=== PATIENT | female | born 1955 | race Caucasian/White ===

== ENCOUNTER 2019-12-01 07:00 | Inpatient (IN) ==
[2019-11-25 12:50] LABS: Basophils # (Auto) 0.05 K/mcL (0.00-0.30); Basophils % (Auto) 0.9 % (0.0-2.0); Eosinophils # (Auto) 0.16 K/mcL (0.00-0.70); Granulocytes % (Auto) 44.3 % (38.0-78.0); Hematocrit 43.2 % (34.1-44.9); Hemoglobin 14.1 g/dL (11.2-15.7); Lymphocytes # (Auto) 2.01 K/mcL (1.50-4.80); Lymphocytes % (Auto) 37.6 % (15.5-49.0); Mean Cell Volume 98.2 fL (80.0-100.0); Mean Corpuscular HGB Conc 32.6 g/dL (31.0-36.0); Mean Platelet Volume 10.8 fL (7.4-10.4); Monocytes # (Auto) 0.76 K/mcL (0.10-0.90); Monocytes % (Auto) 14.2 % (1.0-12.0); Platelet Count 288 K/mcL (140-440); Red Cell Distribution Width 11.9 % (11.5-14.5); WBC 5.3 K/mcL (4.50-11.00)
[2019-11-25 13:14] LABS: ALT/SGPT 32 U/l (0-40); AST/SGOT 44 U/l (0-37); Albumin 4.3 gm/dL (3.2-5.2); Albumin/Globulin Ratio 1.5 (1.0-2.3); Alkaline Phosphatase 61 U/L (39-117); Bilirubin,Total 0.3 mg/dL (0.0-1.0); Blood Urea Nitrogen 11 mg/dl (8-23); Calcium 9.3 mg/dl (8.6-10.4); Carbon Dioxide 27 mmol/L (22-30); Globulin 2.9 gm/dL (2.2-3.7); Glomerular Filtration Rate 93; Glucose 86 mg/dL (70-105)
[2019-11-25 13:20] LABS: Chloride 95 mmol/L (96-108)
[2019-11-25 13:28] LABS: Appearance,Urine CLEAR; Bilirubin,Urine NEG (NEG); Color,Urine STRAW; Culture Indicated,Urine NO; Glucose,Urine (UA) NEGATIVE (NEG); Ketones,Urine NEG (NEG); Leukocyte Esterase,Urine NEG /uL (NEG); Nitrate,Urine NEG (NEG); Protein,Urine NEG (NEG); Urine Blood NEG mg/dL (<0.03); Urobilinogen,Urine NEG (NEG)
[2019-11-25 14:03] LABS: Estimated Average Glucose(eAG) 108 mg/dL; Hemoglobin A1C 5.4 % HGB (4.0-6.0)
[~2019-12-01 07:00] MED LIST: CELECOXIB 200 MG CAPSULE PO SCH; IPRATROPIUM/ALBUTEROL 3 ML AMPUL.NEB NEB PRN; PREGABALIN 75 MG CAPSULE PO SCH; SCOPOLAMINE 1 PATCH PATCH TOPICAL PRN; ceFAZolin 2 GM in DEXTROSE 5% IN WATER 50 ML IV SCH; oxyCODONE 10 MG TAB.ER.12H PO SCH
[2019-12-01] MEDS ORDERED: DEXAMETHASONE 10 MG/ML VIAL IV ONE (09:23)
[2019-12-01] MEDS ORDERED: ONDANSETRON 4 MG/2 ML VIAL IV ONE (09:23)
[2019-12-01] MEDS ORDERED: ePHEDrine 50 MG/ML AMPUL IV ONE (09:23)
[2019-12-01] MEDS ORDERED: TRANEXAMIC ACID 1,000 MG/10 ML VIAL IV ONE (09:23)
[2019-12-01] MEDS ORDERED: KETAMINE 100 MG/ML ML IV ONE (09:23)
[2019-12-01] MEDS ORDERED: PROPOFOL 200 MG/20 ML VIAL IV ONE (09:23)
[2019-12-01] MEDS ORDERED: PHENYLEPHRINE 10 MG/ML VIAL IV ONE (09:23)
[2019-12-01] MEDS ORDERED: MEPERIDINE 25 MG/ML SYRINGE IV PRN (10:33)
[2019-12-01] MEDS ORDERED: LACTATED RINGERS 250 ML IV PRN (10:33)
[2019-12-01] MEDS ORDERED: NALOXONE HCL 0.4 MG/ML VIAL IV PRN (10:33)
[2019-12-01] MEDS ORDERED: ONDANSETRON 4 MG/2 ML VIAL IV PRN (10:33)
[2019-12-01] MEDS ORDERED: PROMETHAZINE 25 MG/ML VIAL IV PRN (10:33)
[2019-12-01] MEDS ORDERED: IPRATROPIUM/ALBUTEROL 3 ML AMPUL.NEB NEB PRN (10:33)
[2019-12-01] MEDS ORDERED: diphenhydrAMINE 50 MG/ML VIAL IV PRN (10:33)
[2019-12-01] MEDS ORDERED: ACETAMINOPHEN 700 MG/70 ML BOTTLE IV ONE (10:33)
[2019-12-01] MEDS ORDERED: LACTATED RINGERS 1,000 ML IV SCH (10:45)
[2019-12-01] MEDS ORDERED: BISACODYL 10 MG SUPP.RECT PR PRN (10:49)
[2019-12-01] MEDS ORDERED: HYDROmorphone 1 MG/ML SYRINGE IV PRN (10:49)
[2019-12-01] MEDS ORDERED: BENZOCAINE/MENTHOL 1 LOZENGE PO PRN (10:49)
[2019-12-01] MEDS ORDERED: MAGNESIUM HYDROXIDE 30 ML ORAL.SUSP PO PRN (10:49)
[2019-12-01] MEDS ORDERED: POLYETHYLENE GLYCOL 3350 17 GM PACKET PO PRN (10:49)
[2019-12-01] MEDS ORDERED: FLEETS ADULT ENEMA PR PRN (10:49)
[2019-12-01] MEDS ORDERED: TRANEXAMIC ACID 1,000 MG/10 ML VIAL IV SCH (10:49)
--- NOTE | 2019-12-01 10:49 | Brief Operative Note ---
Brief Operative Note Date of procedure: 12/01/19 Pre-op diagnosis: Right hip dysplasia with DJD Post-op diagnosis: same Procedure: Right anterior total hip arthroplasty Grafts/Implants: Yes (Depuy Actis 7 std stem, +1.5 36mm delta head, 52 cup, neutral altrx liner) Anesthesia: spinal and GLMA Findings: dysplasia Complications: none Surgeon: Luciano Gotti Gas Scrubber Operator: Femi Benson Estimated blood loss (cc): 250 Specimens Removed/Pathology: none sent Condition: stable Disposition: PACU
[2019-12-01] MEDS ORDERED: METOCLOPRAMIDE 10 MG TABLET PO PRN (10:52)
--- NOTE | 2019-12-01 11:04 | Operative Note ---
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 PROCEDURE PERFORMED: Right anterior total hip arthroplasty placing a DePuy Actis size 7 standard offset femoral stem; a +1.5, 36 mm delta ceramic head ball; a 52 Severy cup with a neutral Altrx liner. SURGEON: Luciano Gotti M.D. MICROBIOLOGY MANAGER: Mario Benson PA-C. The PA's assistance was required for the safe and efficient completion of the entire case. This provider's expertise and technical skill were required throughout the case. The PA assisted with preoperative coordination, intraoperative retraction, wound closure, dressing and splint application, as well as postoperative documentation and care coordination. ANESTHESIA: Spinal plus general. DRAINS: None. SPECIMENS: Femoral head which was discarded. BLOOD LOSS: 250 mL. COMPLICATIONS: None. POSTOPERATIVE CONDITION: Stable. INDICATIONS FOR SURGERY: This is a 64-year-old female who has had progressive worsening right hip pain and groin pain. She had a physical exam which showed painful range of motion of the hip and x-rays showed acetabular dysplasia. FINDINGS AT SURGERY: As above. Post implantation showed satisfactory component position, leg length equality and offset. PROCEDURE IN DETAIL: The patient had been seen preoperatively. Informed consent obtained after discussion of risks and benefits of surgery. Risks including, but not limited to, bleeding; infection; injury to nerves, blood vessels, and other surrounding structures; anesthetic risks; incomplete or no resolution of symptoms; leg length discrepancy; dislocation; fracture; DVT and pulmonary embolus risks; and the possibility of needing further revision joint surgery. The patient understood these risks and wished to proceed. Correct operative site was marked and then spinal anesthesia given. The patient was then taken to the operating room and LMA general given. The patient was carefully transferred to the fracture table and then the operative hip was carefully prepped and draped in normal sterile fashion. Timeout was performed verifying patient name, operative site, and plan. Ioban was used to cover all skin surfaces. A standard anterior approach incision was made with a scalpel through skin and subcutaneous tissue. Hemostasis was obtained with Bovie cautery. Careful blunt dissection was taken down on the tensor fascia and then this was undermined circumferentially. IrriSept was irrigated and a ring retractor placed. Tensor fascia was incised in line with muscle fibers and then careful blunt dissection taken medial to the muscle belly. Blunt cobra retractors were placed on the superior and inferior femoral neck and then circumflex vessels were coagulated and cut and vastus fascia split distally. Anterior capsulectomy was performed and then the capsule releases. Corkscrew was placed in the femoral head. Prior to placement of the corkscrew we did take x-rays for joint point. Once a corkscrew was placed we used fluoroscopy to identify our approximate neck cut trajectory and then our femoral neck was cut with oscillating tip saw. Femoral head was removed and the acetabulum exposed. Labrum was excised circumferentially as well as soft tissue from the floor. We then irrigated with IrriSept. We then began sequentially reaming until 1 mm smaller than the final implant. We then opened the acetabular component. IrriSept was irrigated, after a minute pulse lavaged with saline and then the cup was impacted using the [id number]. Joint point was used to verify satisfactory cup position. A center hole cover was placed and then the acetabular liner was carefully aligned and impacted and carefully verified to be fully seated. We then released traction. The leg was externally rotated and released capsule around the medial neck. The leg was then extended and adducted. Capsule was released out towards greater trochanter and then the proximal femur was exposed. Box osteotome was used to gain canal entry and an awl was used to identify canal trajectory. Rongeur and rasp were used to lateralize and then we began sequentially broaching up to the final size. We calcar planed down onto the broach and then the neck trial and head ball were placed. The hip was reduced. Fluoro was brought in and x-rays taken, joint point was used to verify satisfactory position. We then re-dislocated and removed the trial implants. Definitive implants were opened. We then irrigated the femoral canal with IrriSept again, after a minute pulse lavaged with saline. The final stem was impacted and seated. We then opened the head ball. The stem was carefully cleaned and dried and the head ball was impacted. We then reduced the hip with satisfactory tension. Final fluoro images were taken and saved. We irrigated the joint with IrriSept, after a minute pulse lavaged with saline again and then closed the tensor fascia with two running #1 Vicryls, one running proximal, one running distal and a ring retractor was removed. Final IrriSept irrigation was done, after a minute final pulse lavage, and then fat was tacked to fascia with Vicryl and then 2-0 Monocryl for subcutaneous and karyn for skin. Xeroform and sterile dressing were applied. The patient was then awakened, extubated, and transferred to recovery in stable condition. BJB:amna Job ID: [id number] Doc ID: [id number] Luciano Gotti MD
[2019-12-01] MEDS: KETOROLAC 30 MG/ML VIAL IV PRN ×2 (11:16→18:58)
[2019-12-01] MEDS: fentaNYL 100 MCG/2 ML VIAL IV PRN ×2 (11:28→11:36)
--- NOTE | 2019-12-01 11:52 | XRay Report ---
CLINICAL INFORMATION: Post-op Total Hip COMPARISON: Preoperative plain film 02/13/2017 FINDINGS: Right total hip prostheses is anatomically aligned. No osseous abnormality. Both SI and left hip showing minimal degeneration. Soft tissue swelling over the surgical site seen as expected IMPRESSION: Right hip prostheses is anatomically aligned Interpreted and Authenticated by: Jayant Cummings 12/01/19
[2019-12-01] MEDS: 0.9 % SODIUM CHLORIDE 1,000 ML IV SCH ×2 (11:55→20:29)
[2019-12-01] MEDS: ONDANSETRON 4 MG/2 ML VIAL IV PRN ×2 (13:03→17:17)
[2019-12-01] MEDS: 0.9 % SODIUM CHLORIDE 10 ML SYRINGE IV SCH ×2 (13:04→20:19)
--- NOTE | 2019-12-01 15:10 | XRay Report ---
CLINICAL INFORMATION: total hip arthroplasty COMPARISON: None. FINDINGS: Multiple digital images from the OR is submitted. Final image shows right total hip prosthesis in anatomic alignment. Soft tissue swelling as expected IMPRESSION: Right total hip prosthesis in anatomic alignment. Interpreted and Authenticated by: Jayant Cummings 12/01/19
--- NOTE | 2019-12-01 15:13 | Discharge Summary ---
Discharge Provider Provider Patient information: Note initiated : 12/01/19 at 3:13 pm Service Date, if different from initiated Date: [] Patient: Karishma Howe 64 y/o F admitted on 12/01/19 for Right Total Hip Arthroplasty Anterior. Chief Complaint: [] Date of admission: 12/01/19 07:00 Discharge date: 12/02/19 Primary care physician: Jayant Keys DO COURSE Hospital Course Hospital course: Pt discharged to home s/p elective R GOLD Discharge diagnosis: R hip OA Time Spent with Patient Time attestation: Total time spent providing and/or coordinating discharge services: Physical Examination Narrative Exam Narrative: Pt evaluated 12/02/19, doing well, no c/o. Bandages c/d/i, NVI- distal. Exam Weight bearing status: as tolerated Discharge Instructions - GOLD Patient Instructions Total Hip Protocol: Follow activity instructions as provided by Physical Therapy. Discharge Plan Patient/Caregiver Discharge Instructions Activity: increase activity as tolerated and resume usual activities as tolerated Diet: Regular Diet Prescriptions: New hydrocodone-acetaminophen 10-325 mg tablet 1 - 2 tab PO Q4-6HP PRN (Reason: pain) Qty: 60 RF: 0 aspirin 81 mg tablet,delayed release (DR/EC) 81 mg PO BID Qty: 60 RF: 0 Continued thyroid (pork) [Hurst Thyroid] 60 mg tablet 60 mg PO BID RF: 0 multivitamin [Multiple Vitamins] Tablet 1 tab PO QDAY RF: 0 valacyclovir [Valtrex] 1 gram tablet 1,000 mg PO .COMPLEX RF: 0 melatonin 10 mg tablet 20 mg PO HS RF: 0 naproxen sodium [Aleve] 220 mg tablet 220 mg PO Q12H PRN (Reason: Pain) RF: 0 metoclopramide HCl [Reglan] 10 mg tablet 10 mg PO QDAY PRN (Reason: Nausea) RF: 0 estradiol 1 MG tablet 1 mg PO DAILY RF: 0 magnesium oxide 400 mg magnesium Capsule 400 mg PO QDAY RF: 0 Adult Probiotic 3 billion cell Capsule 3,000 mmu cells PO QDAY RF: 0 Other Ambulatory Orders: Physical Therapy at Discharge - GOLD (Routine) Location: None Selected Ordered By: Femi Vasquez (ONCE) Location: None Selected Ordered By: Femi Benson Follow Up Plan Patient Disposition: Home, Self-Care Hospital Course: Pt discharged to home s/p elective GOLD Prognosis: Good Rehab Potential: Good Overall status at discharge: patient is progressing back to baseline Discharge Orders: Discharge Order (Routine); Ordered 12/02/19 Ordered By: Femi Benson Pending Pending Pending: Resuscitation Status Full Code Diet Regular Diet Start FriNov 30 105 Hydromorphone HCl (Dilaudid) 0 mg IV Q2HP PRN; Protocol PRN Reason: Per Pain Protocol Last Admin: 12/01/19 13:03 Dose: 1 mg Documented by: EMILI Sodium Chloride (Sodium Chloride 0.9%) 1,000 mls @ 100 mls/hr IV .Q10H JOAN Last Admin: 12/01/19 11:55 Dose: 100 mls/hr Documented by: EMILI Ketorolac Tromethamine (Toradol) 30 mg IV Q6HP PRN PRN Reason: Pain Stop: 12/03/19 10:50 Last Admin: 12/01/19 11:16 Dose: 30 mg Documented by: VITA Ondansetron HCl (Zofran) 4 mg IV Q4HP PRN PRN Reason: Nausea And Vomiting Last Admin: 12/01/19 13:03 Dose: 4 mg Documented by: EMILI Sodium Chloride (Saline Flush) 10 ml IV Q8 JOAN Last Admin: 12/01/19 13:04 Dose: Not Given Documented by: EMILI
[2019-12-01] MEDS: ceFAZolin 1 GM VIAL IV SCH (17:18)
[2019-12-01] MEDS: oxyCODONE/APAP 5/325MG TABLET PO PRN ×2 (18:55→20:12)
[2019-12-01] MEDS: DOCUSATE SODIUM 100 MG CAPSULE PO SCH (20:18)
[2019-12-01] MEDS: THYROID, PORK 60 MG TABLET PO SCH (20:18)
[2019-12-01] MEDS: ASPIRIN 81 MG TAB.CHEW PO SCH (20:19)
[2019-12-01] MEDS ORDERED: SENNOSIDES 1 TABLET PO SCH (21:00)
[2019-12-01] MEDS ORDERED: valACYclovir 500 MG TABLET PO PRN (21:00)
[2019-12-01] MEDS ORDERED: MELATONIN 3 MG TABLET PO SCH (21:00)
[2019-12-02] MEDS: ceFAZolin 1 GM VIAL IV SCH (01:00)
[2019-12-02] MEDS: oxyCODONE/APAP 5/325MG TABLET PO PRN ×3 (01:00→09:02)
[2019-12-02] MEDS: KETOROLAC 30 MG/ML VIAL IV PRN (01:04)
[2019-12-02] MEDS: 0.9 % SODIUM CHLORIDE 10 ML SYRINGE IV SCH (04:29)
[2019-12-02] MEDS: 0.9 % SODIUM CHLORIDE 1,000 ML IV SCH (07:41)
[2019-12-02] MEDS: ASPIRIN 81 MG TAB.CHEW PO SCH (07:58)
[2019-12-02] MEDS: THYROID, PORK 60 MG TABLET PO SCH (07:58)
[2019-12-02] MEDS: DOCUSATE SODIUM 100 MG CAPSULE PO SCH (07:58)
[2019-12-02] MEDS ORDERED: ESTRADIOL 1 MG TABLET PO SCH (09:00)
[2019-12-02] MEDS ORDERED: LACTOBACILLUS 1 CAPSULE PO SCH (09:00)
[2019-12-02] MEDS ORDERED: MAGNESIUM OXIDE 400 MG TABLET PO SCH (09:00)
[2019-12-02] MEDS ORDERED: MULTIVIT,THER IRON,CA,FA & MIN 1 TABLET PO SCH (09:00)
[2019-12-02] MEDS ORDERED: PNEUMOCOCCAL 23-VAL P-SAC VAC 0.5 ML SYRINGE IM ONE (10:00)
== END 2019-12-02 09:20 | disposition home or self-care (01) | DRG 470 ==
LOC: MEDSUR 07:00
PROVIDERS: ADMIT Orthopaedic Surgery; ATTEND Orthopaedic Surgery